=== PATIENT | male | born 1965 | race Hispanic/Latino ===

== ENCOUNTER 2024-02-26 11:13 | Day surgery (SDC) | payer BC, OTHER ==
[2024-02-26] VITALS (12 sets, daily range): BP systolic 111–143; BP diastolic 54–64; PULSE 61–75; RESP 12–16
[~2024-02-26] VITALS: Ht 172.7 cm; Wt 88.5 kg
[2024-02-26] MEDS ORDERED: CARV25TA PO (13:04)
[2024-02-26] MEDS ORDERED: HYDR50TA37 PO (13:04)
[2024-02-26] MEDS ORDERED: SEVE0.8P3 PO (13:04)
[2024-02-26] MEDS ORDERED: FOLI0.8T22 PO (13:04)
[2024-02-26] MEDS ORDERED: BRIM5DRO21 OP (13:04)
[2024-02-26] MEDS ORDERED: ATOR40TA69 PO (13:04)
[2024-02-26] MEDS ORDERED: HYDR-3420 PO (13:04)
[2024-02-26] MEDS ORDERED: CINA30TA5 PO (13:04)
[2024-02-26] MEDS ORDERED: NIFE-79 PO (13:04)
[2024-02-26] MEDS ORDERED: INSU100V45 SQ (13:04)
[2024-02-26] MEDS ORDERED: 0.9%NACL 1000ML 1,000 ML IV ONE (13:13)
[2024-02-26] MEDS ORDERED: FLUMAZENIL 0.1MG/1ML 5ML VIAL IV ONE (15:27)
[2024-02-26] MEDS ORDERED: NALOXONE HCL 0.4 MG/1 ML ML ONE (15:27)
[2024-02-26] MEDS: LIDOCAINE HCL 2% VISCOUS 15 ML UDCUP ONE (18:43)
[2024-02-26] MEDS: FENTANYL CITRATE PF 50 MCG/1 ML 2ML VIAL IVP ONE (18:45)
[2024-02-26] MEDS: MIDAZOLAM HCL 1 MG/ML 2ML VIAL IVP ONE (18:45)
== END 2024-02-26 17:38 | disposition short-term general hospital (02) ==
LOC: DAH 11:13
PROVIDERS: ATTEND Internal Medicine Cardiovascular Disease
DX: I38 Endocarditis, valve unspecified (principal); R78.81 Bacteremia; I37.1 Nonrheumatic pulmonary valve insufficiency; Z79.01 Long term (current) use of anticoagulants; Z79.899 Other long term (current) drug therapy; Z98.890 Other specified postprocedural states
CPT/HCPCS: 93312; J3010; J7030; J2250; A4615 ×2; A4215; A4223 ×5; A4657; A7002; A4222 ×2; A4221; A4663 ×2; A4216 ×2; A4606 ×2; 99152; 99153; J2310; J3490; G0500

== ENCOUNTER → 2024-05-18 | Outpatient (CLI) | payer MEDICARE, OTHER ==
[~2024-05-18] MED LIST: ATOR40TA69 PO; BRIM5DRO21 OP; CARV25TA PO; CINA30TA5 PO; FOLI0.8T22 PO; HYDR-3420 PO; HYDR50TA37 PO; INSU100V45 SQ; NIFE-79 PO; SEVE0.8P3 PO
== END | disposition home or self-care (01) ==
LOC: RAH 10:00
PROVIDERS: ATTEND Student in an Organized Health Care Education/Training Program
DX: I33.0 Acute and subacute infective endocarditis (principal)
CPT/HCPCS: 93306